=== PATIENT | male | born 1945 | race Two or more races ===

== ENCOUNTER 2018-12-23 17:59 | Emergency (ER) | payer MEDICARE, MEDICAID ==
[~2018-12-23] VITALS: Ht 165.1 cm; Wt 61.2 kg
[~2018-12-23 17:59] MED LIST: BUDE10.2 IH; CLOP75TA15 PO; DULO30CA2 PO; GLIM1TAB2 PO; HYDR-3976 PO; MECL-102 PO; OLME1TAB34 PO; OMEP20CA11 PO; PREG50CA PO; SIMV20TA6 PO; ZOLP10TA6 PO
--- NOTE | 2018-12-23 18:19 | NUR ---
BIB FROM HOME, C/O R ARM PAIN S/P FALL, -KO, TO ER BED 1, HOOKED TO MONITOR, PROVIDED W WARM BLANKET, AWAITING MD ORELLANA.
--- NOTE | 2018-12-23 18:22 | NUR ---
DR ENRIQUE AT BEDSIDE
[2018-12-23] MEDS ORDERED: KETOROLAC TROMETHAMINE INJ 30 MG/ML VIAL ONE (18:30)
[2018-12-23] MEDS ORDERED: KETOROLAC TROMETHAMINE INJ 60 MG/2 ML VIAL IM ONE (18:30)
--- NOTE | 2018-12-23 19:21 | NUR ---
PT BACK TO ROOM AFTER CT SCAN AND XRAY
--- NOTE | 2018-12-23 19:42 | NUR ---
DPatient discharged to home in stable condition. Written and verbal after care instructions given. Patient verbalizes understanding of instruction.
[2018-12-23 19:43] VITALS: BP 127/73
== END 2018-12-23 19:44 | disposition home or self-care (01) ==
LOC: ER 18:01
DX: S52.571A Other intraarticular fracture of lower end of right radius, initial encounter for closed fracture (principal); S00.31XA Abrasion of nose, initial encounter; R51 Headache; I10 Essential (primary) hypertension; E11.9 Type 2 diabetes mellitus without complications; Z79.899 Other long term (current) drug therapy; W19.XXXA Unspecified fall, initial encounter; Y93.89 Activity, other specified; Y92.89 Other specified places as the place of occurrence of the external cause; Y99.8 Other external cause status
CPT/HCPCS: 29125; 70450; 71045; 73100; 73120; 96372; 99284; J1885

== ENCOUNTER 2025-01-18 09:23 | Emergency (ER) | payer MEDICARE, OTHER ==
[~2025-01-18] VITALS: Ht 175.3 cm; Wt 104.3 kg
[~2025-01-18 09:23] MED LIST changes: +GLIM1TAB18 PO; -GLIM1TAB2 PO; -MECL-102 PO; +MECL-159 PO; -OMEP20CA11 PO; +OMEP20CA15 PO; +SIMV-46 PO; -SIMV20TA6 PO
[2025-01-18 09:47] LABS: PLATELET COUNT (AUTO) 201 K/uL (150-450); RED BLOOD CELL COUNT(AUTO) 5.08 MIL/uL (4.5-6.0); RED CELL DISTRIBUTION WIDTH 15.1 % (11.5-15.0); WHITE BLOOD COUNT (AUTO) 6.5 K/uL (4.3-11.0)
[2025-01-18 09:55] LABS: CALCIUM, SERUM 8.6 mg/dL (8.5-10.1); CREATININE 1.2 mg/dL (0.6-1.3); SODIUM SERUM 134 mmol/L (136-145); UREA NITROGEN, BLOOD 27 mg/dL (7-18)
[2025-01-18 10:01] LABS: ASPARTATE AMINOTRANSFERASE 14 U/L (15-37); TOTAL PROTEIN, SERUM 6.8 g/dL (6.4-8.2)
[2025-01-18] MEDS ORDERED: HYDROCODONE/APAP 5/325MG TABLET ONE (10:37)
[2025-01-18] MEDS ORDERED: KETOROLAC TROMETHAMINE INJ 30 MG/ML VIAL ONE (10:37)
[2025-01-18] MEDS: KETOROLAC TROMETHAMINE INJ 30 MG/ML VIAL IM ONE (10:45)
[2025-01-18] MEDS: HYDROCODONE/APAP 5/325MG TABLET PO ONE (10:50)
[2025-01-18] MEDS ORDERED: HYDR-4209 PO (11:50)
[2025-01-18 12:19] VITALS: BP 135/64; TEMP 98.3; O2SAT 98
== END 2025-01-18 12:20 | disposition home or self-care (01) ==
LOC: ER 09:35
DX: S20.212A Contusion of left front wall of thorax, initial encounter (principal); I11.9 Hypertensive heart disease without heart failure; E11.9 Type 2 diabetes mellitus without complications; Z79.02 Long term (current) use of antithrombotics/antiplatelets; Z79.51 Long term (current) use of inhaled steroids; Z79.899 Other long term (current) drug therapy; W18.30XA Fall on same level, unspecified, initial encounter; Y93.89 Activity, other specified; Y92.89 Other specified places as the place of occurrence of the external cause; Y99.8 Other external cause status
CPT/HCPCS: 99285; 71250; 96372; 93005; 74176; 85025; 80048; 83690; 80076; J1885; 36415